=== PATIENT | female | born 1945 | race Caucasian/White ===

== ENCOUNTER → 2017-05-16 | Day surgery (SDC) | payer OTHER ==
[~2017-05-16] MED LIST: *morphine SULFATE 8 MG/ML PERIprocedure ONLY ONE; ACETAMINOPHEN 500 MG CPLT PO PRN; ADVA115A INH; AMLO5TAB2 PO; ATROPINE SULFATE 1% OPHT SOLN 2 ML BTL ONE; BALANCED SALT SOLN OPHT IRRIG 15 ML BTL ONE; CALC250T PO; CHLORHEXIDINE GLUCONATE 2 % 1 PACK (2 CLOTHS) TOPICAL PRN; CHOL10008 PO; DEXAMETHASONE SOD PHOS 4 MG/ML VIAL IV ONE; DEXAMETHASONE SOD PHOS 4 MG/ML VIAL ONE; DIPH25CA PO; DO NOT ADM ANY ANTICOAGULANT DRUGS PRN; DOCU250C7 PO; EPINEPHrine HCL (1:1000) 1 MG/ML VIAL ONE; INSULIN HUMAN REGULAR 1,000 UNITS/10 ML VIAL SQ PRN; LACTATED RINGER'S 1000 ML INJ 1,000 ML IV ONE; LACTATED RINGER'S 1000 ML IV PRN; LEVO112T2 PO; LIDOCAINE HCL 1% PF 5 ML AMPULE OTHER ONE; LOPE-1 PO; LOVA20TA PO; METOPROLOL TARTRATE 25 MG TAB PO PRN; MULT-65 PO; NAPR220C22 PO; OCUVTAB PO; ONDANSETRON HCL 4 MG/2 ML VIAL IM PRN; ONDANSETRON HCL 4 MG/2 ML VIAL IV PRN; ONDANSETRON HCL 4 MG/2 ML VIAL IV PUSH ONE; PANT40TA3 PO; PHENYLEPH/NS 1000 MCG/10 ML SYR IV ONE; POVIDONE IODINE 5% (ANTISEPSIS KIT) 4 APPLICATIONS EACH NARE PRN; PROPOFOL 200 MG/20 ML AMP IV ONE; SODIUM CHLORID 0.9% 500 ML IV PRN; STERILE WATER FOR INJECTION 20 ML VIAL ONE; TOBRAMYCIN/DEXAMETHASONE OPTH OINT 3.5 GM TUBE ONE; TRIAMCINOLONE ACETONIDE/PF 40 MG/ML OPTH VIAL ONE; ceFAZolin INJ 1,000 MG VIAL ONE; ePHEDrine/NS 25 MG/5 ML SYR IV ONE
[2017-05-16] MEDS: PHENYLEPHRINE HCL 2.5% OPTH SOLN 2 ML BTL RIGHT EYE SCH ×4 (10:45→11:25)
[2017-05-16] MEDS: TROPICAMIDE 1% OPHT SOLN 15 ML BTL RIGHT EYE SCH ×4 (10:45→11:25)
[2017-05-16] MEDS: CYCLOPENTOLATE HCL 1% OPHT SOLN 2 ML BTL RIGHT EYE SCH ×4 (10:45→11:25)
[2017-05-16] MEDS: ATROPINE SULFATE 1% OPHT SOLN 5 ML BTL RIGHT EYE SCH ×4 (10:45→11:25)
[2017-05-16 11:37] LABS: AUTOMATED NEUTROPHIL # 4.7 TH/MM3 (1.8-7.7); BASOPHIL % 0.7 % (0.0-2.0); EOSINOPHIL # 0.1 TH/MM3 (0-0.4); EOSINOPHIL % 1.4 % (0.0-4.0); HEMATOCRIT 37.7 % (35.0-46.0); HEMO FLAGS DIFF FINAL; LYMPH % 23.8 % (9.0-44.0); LYMPHOCYTE # 1.6 TH/MM3 (1.0-4.8); MEAN CELL VOLUME 85.5 FL (80.0-100.0); MEAN CORPUSCULAR HEMOGLOBIN 29.3 PG (27.0-34.0); MEAN CORPUSCULAR HGB CONC 34.3 % (32.0-36.0); MONO % 5.4 % (0.0-8.0); NEUT % 68.7 % (16.0-70.0); PLATELET COUNT 250 TH/MM3 (150-450); RED BLOOD COUNT 4.41 MIL/MM3 (4.00-5.30); RED CELL DISTRIBUTION WIDTH 12.8 % (11.6-17.2); WHITE BLOOD COUNT 6.8 TH/MM3 (4.0-11.0)
--- NOTE | 2017-05-16 13:23 | EKG ---
Date Performed: 05/16/2017 Time Performed: 09:23:17 PTAGE: 71 years EKG: Sinus rhythm BORDERLINE RIGHT AXIS DEVIATION POSSIBLE RIGHT VENTRICULAR CONDUCTION DELAY BORDERLINE ECG NO PREVIOUS TRACING DOCTOR: Johnny Sky Interpretating Date/Time 05/16/2017 13:17:02
[2017-05-16 15:40] VITALS: BP 158/79; PULSE 65; RESP 16; TEMP 97.5; O2SAT 100
--- NOTE | 2017-05-17 10:32 | MP ---
cc: LIAM SUE M.D. DATE OF SURGERY 05/16/2017 PREOPERATIVE DIAGNOSIS Full-thickness macular hole with epiretinal membrane right eye. POSTOPERATIVE DIAGNOSIS Full-thickness macular hole with epiretinal membrane right eye. PROCEDURE Trans pars plana vitrectomy with epiretinal membrane in ILM peel, gas-fluid exchange right eye. SURGEON Dr. Liam Seu ANESTHESIA General laryngeal mask anesthesia INDICATIONS Ms. Alvarez is a 71-year-old woman with a history of a macular hole and vision down to 20/200 in her right eye. This has been coming on to her right eye over the past six weeks. On the OCT, she was found to have an epiretinal membrane and full thickness macular hole in her right eye. The risks and benefits of surgery were discussed with the patient, as well as the need for postoperative face-down positioning to try and close the hole. She understood the risks and wished to proceed electively. No guarantee was made as to visual outcome. She was brought to [facility] operating room one and placed on the operating table. Appropriate anesthesia monitoring devices were applied and she was placed under general anesthesia using a laryngeal mask. The right eye was identified as the operative site and then prepped and draped in the usual sterile fashion. A lid speculum was placed. At this time, an appropriate time-out was called with the surgical team agreeing to the surgical site and proposed procedure. Using the Js 23-gauge un-valved vitrectomy system, the trocar cannulas were placed 3-1/2 mm posterior to the limbus after first displacing the conjunctiva. The first one was placed at approximately 8:45 o'clock and verified to be in the posterior chamber. An infusion cannula was affixed to it and turned on. Two additional trocar cannulas were placed in a similar fashion at 10 and 2 o'clock. A small amount of Kenalog was injected into the posterior chamber to visualize the vitreous. Using the flat contact lens and the vitrectomy cutter and light pipe, a core vitrectomy was carried out. The only remaining attachment of the posterior hyaloid and cortical vitreous was at the optic nerve and this was amputated. Using the Rosalind membrane scraper, the membrane was scraped superotemporally down and inferonasally. ICG was used to stain the ILM which was only present nasally and was removed a fair distance from the macular hole by elevating it with a Phil membrane scraper and then elevating it and removing it with the soft tipped linear extrusion needle on aspiration. The flat lens was exchanged for the Biome wide angle viewing system and a peripheral vitrectomy was carried out. Plugs were placed back in the eye and the fundus was inspected with the indirect ophthalmoscope aided by scleral depression. No retinal breaks were found. Using the soft tipped linear extrusion needle, an air-fluid exchange was performed. The air was then exchanged out for a 15% mixture of C3F8 gas. The trocar cannulas were removed one by one with tamponade of the site with a cotton swab and diathermy to the overlying conjunctiva. The infusion cannula was the last to be removed leaving the eye with good pressure and no visible air leaks. Atropine drops were placed on the cornea followed by subtenon's injections of Ancef 2 mg in a half cc and Ancef 125 mg in a half cc. The lid speculum was removed and the patient was undraped. TobraDex ointment was placed on the cornea and then the right eye was patched and shielded. The patient had the laryngeal mass removed in the room and was returned to recovery in good condition lying on her right side. When awake and alert, she will be asked to assume a face down position. MD MIKE Friedman/MIGUEL /2:25 PM /10:23 AM
== END | disposition home or self-care (01) ==
LOC: HSDC 08:52
PROVIDERS: ATTEND Ophthalmology
DX: H35.341 Macular cyst, hole, or pseudohole, right eye (principal); I10 Essential (primary) hypertension
CPT/HCPCS: 00145; 67042; 85025; 93005; J0171; J0690; J1100; J2270; J2370; J2405; J3010; J3300; J7120